=== PATIENT | female | born 1950 | race Caucasian/White ===

== ENCOUNTER → 2024-04-08 06:34 | Day surgery (SDC) | payer MEDICARE, SELFPAY | LOC: GI 06:34 | PROVIDERS: ATTENDING PHYSICIAN Internal Medicine Gastroenterology | DX: Z12.11 Encounter for screening for malignant neoplasm of colon (principal); D12.5 Benign neoplasm of sigmoid colon; Z98.0 Intestinal bypass and anastomosis status; K64.8 Other hemorrhoids; D50.9 Iron deficiency anemia, unspecified; K31.89 Other diseases of stomach and duodenum; K29.50 Unspecified chronic gastritis without bleeding; Z85.038 Personal history of other malignant neoplasm of large intestine | CPT/HCPCS: 45385; 43239; 88305; 88342 ==

== ENCOUNTER → 2025-02-26 10:55 | Outpatient (REF) | payer MEDICARE, SELFPAY | LOC: WDC 10:55 | PROVIDERS: ATTENDING PHYSICIAN Physician Assistant Medical; FAMILY PHYSICIAN Family Medicine | DX: M81.0 Age-related osteoporosis without current pathological fracture (principal); Z12.31 Encounter for screening mammogram for malignant neoplasm of breast | CPT/HCPCS: 77063; 77067; 77080 ==